=== PATIENT | male | born 1965 | race Caucasian/White ===

== ENCOUNTER 2020-07-15 09:46 | Outpatient (NON) | payer OTHER, SELFPAY ==
[2020-07-16 01:01] LABS: SARS-CoV-2 RNA PCR Negative
== END 2020-07-15 09:47 ==
PROVIDERS: PCP Family Medicine; Visit Provider Family Medicine
DX: R09.81 Nasal congestion (principal)
CPT/HCPCS: 87635; C9803; U0003

== ENCOUNTER → 2021-04-01 04:51 | Outpatient (CLI) | payer OTHER, SELFPAY ==
[2021-04-01 21:10] LABS: SARS-CoV-2 RNA PCR Positive
== END ==
PROVIDERS: PCP Family Medicine; Visit Provider Family Medicine
DX: U07.1 COVID-19 (principal); R09.89 Other specified symptoms and signs involving the circulatory and respiratory systems
CPT/HCPCS: C9803; U0003; U0005

== ENCOUNTER 2022-04-15 12:55 | Emergency (ER) | payer OTHER, SELFPAY ==
[2022-04-15 13:04] VITALS: BP 173/113; PULSE 97; RESP 18; TEMP 36.7; O2SAT 97
--- NOTE | 2022-04-15 13:38 | ED.SKABFB ---
HPI - Skin/Abscess/Foreign Bdy General Chief complaint: Skin/Abscess/Foreign Body Stated complaint: Insect Bite Lt Ankle Time Seen by Provider: 04/15/22 13:39 History of Present Illness HPI narrative: Sergio Collier 57-year-old male with a PMH of high blood pressure, prediabetes, who comes to [facility] with complaints of a wasp sting on his left inner ankle that is painful and mildly swollen and his family wants it looked at. It occurred yesterday Related Data Home Medications Medication Instructions Recorded Confirmed albuterol sulfate 90 mcg/actuation See Rx Instructions .Route 04/15/22 04/15/22 aerosol inhaler .COMPLEX PRN Shortness Of Breath Or Wheezing flash glucose sensor (FreeStyle 04/15/22 04/15/22 Francisca 14 Day Sensor kit) Allergies Allergy/AdvReac Type Severity Reaction Status Date / Time amitriptyline AdvReac Intermediate chest Verified 04/15/22 13:01 discomfort Quinolones AdvReac Intermediate -eye Verified 04/15/22 13:01 drop,red/swollen eye Review of Systems Review of Systems: CONSTITUTIONAL: Denies fever, chills, sweats. EYES: Denies visual changes, redness, discharge. ENT: Denies rhinorrhea, congestion, sore throat, otalgia. CARDIOVASCULAR: Denies chest pain, palpitations, edema. RESPIRATORY: Denies dyspnea, wheezing, cough GASTROINTESTINAL: Denies abdominal pain, nausea, vomiting, diarrhea. GENITOURINARY: Denies dysuria, hematuria, abnormal discharge SKIN: Denies rash or itching. While sting to left inner ankle NEUROLOGIC: Denies numbness, or focal weakness. PSYCHIATRIC: Denies anxiety or depression. [facility] Past Medical History Medical History COVID-19 Diabetes mellitus type 2, uncontrolled History of hypertension History of hypothyroidism Nutcracker esophagus Obesity (BMI 30.0-34.9) Surgical History Surgical History History of appendectomy History of colonoscopy (~10/12/16) History of lumbosacral spine surgery (~1995) History of lumbosacral spine surgery (~1993) History of lumbosacral spine surgery (~1992) Family History Family History Mother Hypertension Social History Social History Smoking status: Current some day smoker Tobacco type: cigarettes Alcohol intake: never Gender identity (if verbalized by the patient): Male Comments At time of signature, I agree with nursing past medical, surgical, social and family history. There is no relevant family history pertinent to the presenting complaint. Exam Narrative: GENERAL: This is a well-nourished, well-developed patient, in mild distress. HEAD: normocephalic, atraumatic. EYES: Sclera clear/white. Vision is grossly intact. EARS: External ears normal, Hearing grossly intact. NOSE: External nose normal without nasal discharge, nares without redness, no rhinorrhea. THROAT: Mucous membranes moist, NECK: Neck supple, non-tender CARDIOVASCULAR: Regular rate and rhythm without murmurs, gallops, or rubs. RESPIRATORY: Clear to auscultation. Breath sounds equal bilaterally. No wheezes, rales, or rhonchi. GASTROINTESTINAL: not done SKIN: warm, intact with indurated lesion, has clear fluid inside vesicle, mild tenderness NEURO: awake, alert, and oriented to person, place and time. There were no obvious focal neurologic abnormalities. Steady gait EXTREMITIES: Normal range of motion. BACK: Nontender without deformity Course Course Emergency Course: Patient has a wasp sting to his left inner ankle- small vesicle: Used 18-gauge needle after cleaning with alcohol to unroofed vesicle which had clear fluid only covered with dressing and told to use hydrocortisone cream and keep a Band-Aid on until healed Level of Care: Express Care Visit Vital Signs Vital signs: Vital Signs Temp
[2022-04-15 13:40] VITALS: BP 159/95
== END 2022-04-15 13:47 | disposition home or self-care (01) ==
PROVIDERS: Emergency Provider Nurse Practitioner; PCP Family Medicine
DX: S90.862A Insect bite (nonvenomous), left foot, initial encounter (principal); W57.XXXA Bitten or stung by nonvenomous insect and other nonvenomous arthropods, initial encounter; F17.210 Nicotine dependence, cigarettes, uncomplicated; E11.9 Type 2 diabetes mellitus without complications; I10 Essential (primary) hypertension; E03.9 Hypothyroidism, unspecified; E66.9 Obesity, unspecified; Z68.44 Body mass index [BMI] 60.0-69.9, adult; Z86.16 Personal history of COVID-19
CPT/HCPCS: 99211; G0463

== ENCOUNTER 2024-10-03 12:08 | Emergency (ER) | payer OTHER, SELFPAY ==
--- OUTSIDE RECORDS SUMMARY | 2024-10-03 12:11 | XMS_ITS | Clinical Summary ---
Author Organization [facility] Address [address] [place] [address] Care Team Providers Care Integrated Program Teacher Name Role Phone Shaheen Diallo MD Primary Care Provider [phone] Allergies No known active allergies Medications lisinopriL (PRINIVIL,ZESTR IL) 10 mg tablet Take 10 mg by mouth nightly 06/05/2020 Active clonazePAM (KlonoPIN) 1 mg tablet Take 1 mg by mouth 2 (two) times a day 04/11/2020 Active Bystolic 10 mg tablet Take 10 mg by mouth daily 06/05/2020 Active albuterol HFA (PROVENTIL HFA,VENTOLIN HFA,PROAIR HFA) 90 mcg/actuation inhaler Inhale 2 puffs every 6 (six) hours as needed for wheezing Active Active Problems Problem Noted Date Diagnosed Date Nicotine abuse 01/20/2023 Assessment & Plan (01/20/2023 1:59 PM CDT): Mr. Collier smokes 3/4 of a pack per day. Given his difficulty with fusion in the past, he will need to cease smoking prior to undergoing any lumbar fusion surgeries. We will discuss this further if surgery is recommended. Spinal stenosis, lumbar region with neurogenic c laudication 09/24/2020 Overview (09/24/2020): Added automatically from request for surgery [id number] Assessment & Plan (11/21/2020 9:37 AM CDT): Assessment Healing fusion L4-5 of migration of cage Plan I talked about activity modification ordered an LSO brace. He is to return in a month for an x-ray S/P spinal fusion 09/24/2020 Overview (09/24/2020): Added automatically from request for surgery [id number] Assessment & Plan (01/20/2023 1:56 PM CDT): Mr. Collier has increasing back pain and symptoms of neurogenic claudication. He is status post multiple prior lumbar surgeries with L4-S1 decompression and fusion as his last surgery in July [address] Dove. He is symptoms of neurogenic claudication that are likely due to stenosis at the adjacent level of L3-4. We will get a CT myelogram to look at adjacent level stenosis as well as to evaluate the exact placement of instrumentation and extent of fusion. We will speak to him by phone after the results are available and discuss further options. Assessment & Plan (07/29/2022 3:04 PM SAILOR): Mr. Collier is clinically doing well after L4-S1 decompression and fusion. He has some back pain and left anterior thigh pain which are intermittent and tolerable. He has some minimal movement at L3-4 on dynamic range of motion. He wishes to follow this conservatively which I think is a very reasonable approach. I plan to see him back in 6 months with no new films at that time. Assessment & Plan (02/04/2022 3:16 PM CDT): Mr. Collier is overall doing well after posterior lumbar decompression and fusion with anterior lumbar interbody fusion at. He reports some left anterior thigh pain which is deep in nature and intermittent. It does not bother him enough to undergo any workup. His x-rays show a lot of bone material in the posterolateral recesses bilaterally and no movement on dynamic range of motion. I plan to see him back in 6 months with AP and lateral lumbar spine films at that time. Resolved Problems Problem Noted Date Diagnosed Date Resolved Date Lumbar pseudoarthrosis 07/21/202101/20 Assessment & Plan (10/30/2021 11:47 AM CDT): Assessment Healing fusion L4-S1 Plan Observation I talked about do's and don'ts he is to return in [address] Jara Pseudarthrosis after fusion or arthrodesis 06/23/2021 01/20/2023 Overview (06/23/2021): Added automatically from request for surgery [id number] Assessment & Plan (09/24/2021 11:09 AM SAILOR): Assessment Healing fusion L4-S1 Plan Observation. I talked about do's and don'ts plan on seeing him back in 6 weeks for an x-ray Assessment & Plan (08/21/2021 11:37 AM SAILOR): Assessment Healing fusion L4-S1 Plan Observation. I talked about do's and don'ts and he is to return in a month for an x-ray Spinal instabilities, lumbar region 10/09/2020 01/20/2023 Overview (10/09/2020): Added automatically from request for surgery [id number] Assessment & Plan (05/22/2021 11:56 AM CDT): Assessment Pseudoarthrosis L4-5 with migrated anterior interbody fusion Plan It has now been 6 months since surgery and has no significant improvement and I will the re-attempt a special drill bits treat move his hardware and revise his fusion posteriorly he understands and accepts Spondylolisthesis, lumbar region 09/24/2020 01/20/2023 Overview (09/24/2020): Added automatically from request for surgery [id number] Spondylolisthesis of lumbar region 07/04/2020 01/20/2023 Assessment & Plan (01/28/2021 11:59 AM CDT): Assessment Healed fusion L5-S1 with anterior interbody fusion healing at L4-5 with protrusion of the interbody cage Plan Observation. He is to return in 2 months for an x-ray Assessment & Plan (12/24/2020 11:58 AM CDT): Assessment Spondylolisthesis L4-5 with no change in the extrusion of the interbody cage Plan Observation. He is to return in a month for repeat x-ray and continue to wear his brace Assessment & Plan (09/19/2020 9:35 AM SAILOR): Assessment Healed L5-S1 fusion from 1995 and grade 1 spondylolisthesis and severe foraminal stenosis at L4-5 refractory to conservative treatment Plan Hardware removal bilateral facetectomy and foraminotomy which were render the spine unstable and instrumented spine fusion from L4-S1 I went over the procedure in detail and he understands Assessment & Plan (08/14/2020 11:28 AM SAILOR): Assessment Healed fusion L5-S1 with moderately severe spinal canal stenosis and bilateral foraminal stenosis L4-5 Plan Right L4-5 transforaminal epidural steroid injection at follow-up visit 2 weeks later Assessment & Plan (07/04/2020 10:49 AM SAILOR): Assessment Healed fusion L5-S1 with grade 1 spondylolisthesis L4-[address] scan lumbar spine to assess L4-5 which likely has pretty severe spinal canal stenosis based on his symptoms Immunizations Immunization Administration Dates Next Due Influenza, Quadrivalent, Spl it, Preservative Free, Intramuscular 10/08/2020 Surgical History Surgery Date Site/Laterality Comments BACK SURGERY APPENDECTOMY SPINAL FUSION 10/21/2020 L4-5 ALIF SPINAL FUSION 07/21/2021 L4-S1 PLF Medical History Medical History Date Comments Hypertension Kidney stone Asthma Spinal stenosis, lumbar region with neurogenic c laudication Obesity Tobacco abuse Diabetes (HCC) Pseudarthrosis after fusion or arthrodesis Family History Medical History Relation Name Comments Hypertension Father Hypertension Mother Relation Name Status Comments Father Mother Social History Tobacco Use Types Packs/Day Years Used Date Smoking Tobacco: Every Day Cigarettes Smokeless Tobacco: Never Tobacco Cessation:Ready to Q uit: Not Asked Alcohol Use Standard Drinks/Week Comments Never 0 (1 standard drink = 0.6 oz pur e alcohol) AUDIT-C Answer Date Recorded Q1: How often do you have a drink containing alc ohol? Never 07/21/2021 Average Number of Drinks Not on file 021 Q3: How often do you have si x or more drinks on one occasion? Never 07/21/2021 PHQ-2 Answer Date Recorded PHQ-2 Total Score 0 07/04/2020 Sex and Gender Information Value Date Recorded Sex Assigned at Not on file Legal Sex Male 9:47 AM SAILOR Gender Identity Not on file Sexual Orientation Not on file Obstetrics History Last Filed Vital Signs Vital Sign Reading Time Taken Comments Blood Pressure 152/77 07/22/2021 9:37 AM SAILOR Pulse 92 07/22/2021 9:37 AM SAILOR Temperature 36.7 C (98.1 F) 07/22/2021 9:37 AM SAILOR Respiratory Rate 14 01/20/2023 1:16 PM CDT Oxygen Saturation 98% 07/22/2021 9:37 AM SAILOR Inhaled Oxygen Concentration - - Weight 94.3 kg (208 lb) 01/20/2023 1:16 PM CDT Height 175.3 cm (5' 9 ) 01/20/2023 1:16 PM CDT Body Mass Index 30.72 01/20/2023 1:16 PM CDT Plan of Treatment Health Maintenance Due Date Last Done Comments Colon Cancer Screening-Colonoscopy 1965 Hepatitis C Screening 1965 Prostate Cancer Screening-PSA 1965 Pneumococcal vaccine <65 (1 of 2 - PCV) 01/12/1970 Hepatitis B Screening 01/12/1982 Regular Well Visit/Exam 18-64 01/12/1982 Zoster Vaccine (1 of 2) 01/12/2014 Depression Screening 07/04/2021 07/04/2020 Influenza Vaccine (#1) 2024 10/08/2020, 2017 DTaP/Tdap/Td Vaccine (2 - Td or Tdap) 01/29/2030 Medical Devices Implanted Type Area Structural Biologist Device Identifier Shelf Expiration Date Model / Serial / Lot Allosource [id number] Cubes Graft 15ml Bone Cancellous - [id number] - [id number] Implanted:Qty: 1 on 07/21/2021 by Cuauhtemoc Dove MD at [facility] Bone N/A: Lumbar-S acral Spine Allosource 10/05/2023 [id number] / [id number] / N/A Medtronic Sofamor Danek [id number] Infuse 20ga 2x1in Vial Absorbable Syringe Needle Medium Graft 5.6 - Sn/A - [id number] Implanted:Qty: 1 on 07/21/2021 by Cuauhtemoc Dove MD at [facility] Other - see comments N/A: Lumbar-S acral Spine Medtronic Inc 04/16/2023 [id number] / N/A / [id number] [employer] 703-038-Us Putty Bone 1-2mm Granules 10cc Magnetos - Sn/A - [id number] Implanted:Qty: 1 on 07/21/2021 by Cuauhtemoc Dove MD at [facility] Other - see comments N/A: Lumbar-S acral Spine Panono [id number] 02/14/2024 703-038-US / N/A / [id number] Qsrs Pre-Bent 5.5mm X 65mm - [id number] Implanted:Qty: 2 on 07/21/2021 by Cuauhtemoc Dove MD at [facility] Other - see comments N/A: Lumbar-S acral Spine [employer] 10-55-NV-6 5 / / [employer] 25-Lp-36 36mm Spine Lumbar Anterior Plate Bone Nonsterile - [id number] Implanted:Qty: 1 on 10/21/2020 by Cuauhtemoc Dove MD at [facility] Plate Spine Lumbar [employer] 25-LP-36 / / Screw 7.0mm X 40mm Streamline Tl Pedicle - Sn/A - [id number] Implanted:Qty: 2 on 07/21/2021 by Cuauhtemoc Dove MD at [facility] Screw N/A: Lumbar-S acral Spine [employer] 01-PA-70-4 0 / N/A / Description:l4 bilat Screw 8.5mm X 40mm Srmlne Pedicle - [id number] Implanted:Qty: 2 on 07/21/2021 by Cuauhtemoc Dove MD at [facility] Screw N/A: Lumbar-S acral Spine [employer] PA-85-4 0 / / Description:s1 Screw 7.5mm X 45mm Srmlne Pedicle - Sn/A - [id number] Implanted:Qty: 2 on 07/21/2021 by Cuauhtemoc Dove MD at [facility] Screw N/A: Lumbar-S acral Spine [employer] PA-75-4 5 / N/A / Screw Set Streamline Tl Screw System - Sn/A - [id number] Implanted:Qty: 6 on 07/21/2021 by Cuauhtemoc Dove MD at [facility] Screw N/A: Lumbar-S acral Spine [employer] SETSCRE W / N/A / Medtronic Sofamor Danek [id number] Infuse 20ga 2x1in Vial Absorbable Syringe Needle Medium Graft 5.6 - [id number] Implanted:Qty: 1 on 10/21/2020 by Cuauhtemoc Dove MD at [facility] Spine Lumbar Medtronic Inc 04/15/2021 [id number] / / [id number] Rti [employer] 34-S65-99-3 Contact Option Vbr 02l29mb Lordosis Back Cutting Teeth - [id number] Implanted:Qty: 1 on 10/21/2020 by Cuauhtemoc Dove MD at [facility] Spine Lumbar [employer] [id number] 12/28/2023 34-A30-12- 8 / / [id number] Rti [employer] Inc 6mm 24mm Spine Lumbar Screw Bone Nonsterile - [id number] Implanted:Qty: 4 on 10/21/2020 by Cuauhtemoc Dove MD at [facility] Spine Lumbar [employer] -24 / / Insurance [facility] CHO[facility] PLUS [facility] PLUS Advance Directives For more information, please contact: [phone] * Full Code (Latest Code Status on File) Date Activated Date Inactivated Comments 07/21/2021 1:53 PM 07/22/2021 3:44 PM * Full Code Date Activated Date Inactivated Comments 10/21/2020 6:29 PM 10/22/2020 6:30 PM * Full Code Date Activated Date Inactivated Comments 10/07/2020 4:52 PM 10/08/2020 3:52 PM Care Teams Integrated Program Teacher Relationship Specialty Start Date End Date Shaheen Diallo MD PCP - General Family Medicine 07/04/20
--- OUTSIDE RECORDS SUMMARY | 2024-10-03 12:11 | XMS_ITS | Referral Summary ---
[facility] Address [address] [place] [address] Care Team Providers Care Data Technician Name Role Phone Shaheen Diallo MD Primary Care Provider [phone] Allergies No known active allergies Medications lisinopriL [...] (09/24/2020): Added automatically from request for surgery [id number] Assessment & Plan (11/21/2020 9:37 AM CDT): Assessment Healing fusion L4-5 of migration of cage Plan I talked about activity modification ordered an LSO brace. He is to return in a month for an x-ray S/P spinal fusion 09/24/2020 Overview (09/24/2020): Added automatically from request for surgery [id number] Assessment & Plan (01/20/2023 1:56 PM CDT): [...] options. Assessment & Plan (07/29/2022 3:04 PM INSULATION INSPECTOR): Mr. Collier is clinically doing well after [...] (06/23/2021): Added automatically from request for surgery [id number] Assessment & Plan (09/24/2021 11:09 AM INSULATION INSPECTOR): Assessment Healing fusion L4-S1 Plan Observation. I talked about do's and don'ts plan on seeing him back in 6 weeks for an x-ray Assessment & Plan (08/21/2021 11:37 AM INSULATION INSPECTOR): Assessment Healing fusion L4-S1 Plan Observation. I talked about do's and don'ts and he is to return in a month for an x-ray Spinal instabilities, lumbar region 10/09/2020 01/20/2023 Overview (10/09/2020): Added automatically from request for surgery [id number] Assessment & Plan (05/22/2021 11:56 AM CDT): [...] (09/24/2020): Added automatically from request for surgery [id number] Spondylolisthesis of lumbar region 07/04/2020 01/20/2023 Assessment [...] brace Assessment & Plan (09/19/2020 9:35 AM INSULATION INSPECTOR): Assessment Healed L5-S1 fusion from 1995 and grade 1 spondylolisthesis and severe foraminal stenosis at L4-5 refractory to conservative treatment Plan Hardware removal bilateral facetectomy and foraminotomy which were render the spine unstable and instrumented spine fusion from L4-S1 I went over the procedure in detail and he understands Assessment & Plan (08/14/2020 11:28 AM INSULATION INSPECTOR): Assessment Healed fusion L5-S1 with moderately severe spinal canal stenosis and bilateral foraminal stenosis L4-5 Plan Right L4-5 transforaminal epidural steroid injection at follow-up visit 2 weeks later Assessment & Plan (07/04/2020 10:49 AM INSULATION INSPECTOR): Assessment Healed fusion L5-S1 with grade 1 spondylolisthesis L4-[address] scan lumbar spine to assess L4-5 which likely has pretty severe spinal canal stenosis based on his symptoms Immunizations Immunization Administration Dates Next Due Influenza, Quadrivalent, Spl it, Preservative Free, Intramuscular 10/08/2020 Social History Tobacco Use Types Packs/Day Years [...] on file Legal Sex Male 9:47 AM INSULATION INSPECTOR Gender Identity Not on file Sexual Orientation Not on file Last Filed Vital Signs Vital Sign Reading Time Taken Comments Blood Pressure 152/77 07/22/2021 9:37 AM INSULATION INSPECTOR Pulse 92 07/22/2021 9:37 AM INSULATION INSPECTOR Temperature 36.7 C (98.1 F) 07/22/2021 9:37 AM INSULATION INSPECTOR Respiratory Rate 14 01/20/2023 1:16 PM CDT Oxygen Saturation 98% 07/22/2021 9:37 AM INSULATION INSPECTOR Inhaled Oxygen Concentration - - Weight 94.3 kg (208 lb) 01/20/2023 1:16 PM CDT Height 175.3 cm (5' 9 ) 01/20/2023 1:16 PM CDT Body Mass Index 30.72 01/20/2023 1:16 PM CDT Plan of Treatment Not on file Medical Devices Implanted Type Area Butt Maker Device Identifier Shelf Expiration Date Model / Serial / Lot Allosource [id number] Cubes Graft 15ml Bone Cancellous - [id number] - [id number] Implanted:Qty: 1 on 07/21/2021 by Cuauhtemoc Dove MD at [facility] Bone N/A: Lumbar-S acral Spine Allosource 10/05/2023 [id number] / [id number] / N/A Medtronic Sofamor Danek [id number] Infuse 20ga 2x1in Vial Absorbable Syringe Needle Medium Graft 5.6 - Sn/A - [id number] Implanted:Qty: 1 on 07/21/2021 by Cuauhtemoc Dove MD at [facility] Other - see comments N/A: Lumbar-S acral Spine Medtronic Inc 04/16/2023 [id number] / N/A / [id number] [employer] 703-038-Us Putty Bone 1-2mm Granules 10cc Magnetos - Sn/A - [id number] Implanted:Qty: 1 on 07/21/2021 by Cuauhtemoc Dove MD at [facility] Other - see comments N/A: Lumbar-S acral Spine [employer] [id number] 02/14/2024 703-038-US / N/A / Y2017 Qsrs Pre-Bent 5.5mm X 65mm - [id number] Implanted:Qty: 2 on 07/21/2021 by Cuauhtemoc Dove MD at [facility] Other - see comments N/A: Lumbar-S acral Spine [employer] 10-55-MN-6 5 / / [employer] 25-Lp-36 36mm Spine Lumbar Anterior Plate Bone Nonsterile - [id number] Implanted:Qty: 1 on 10/21/2020 by Cuauhtemoc Dove MD at [facility] Plate Spine Lumbar [employer] 25-LP-36 / / Screw 7.0mm X 40mm Streamline Tl Pedicle - Sn/A - [id number] Implanted:Qty: 2 on 07/21/2021 by Cuauhtemoc Dove MD at [facility] Screw N/A: Lumbar-S acral Spine [employer] PA-70-4 0 / N/A / Description:l4 bilat Screw 8.5mm X 40mm Srmlne Pedicle - [id number] Implanted:Qty: 2 on 07/21/2021 by Cuauhtemoc Dove MD at [facility] Screw N/A: Lumbar-S acral Spine [employer] -85-4 0 / / Description:s1 Screw 7.5mm X 45mm Srmlne Pedicle - Sn/A - [id number] Implanted:Qty: 2 on 07/21/2021 by Cuauhtemoc Dove MD at [facility] Screw N/A: Lumbar-S acral Spine [employer] -75-4 5 / N/A / Screw Set Streamline Tl Screw System - Sn/A - [id number] Implanted:Qty: 6 on 07/21/2021 by Cuauhtemoc Dove MD at [facility] Screw N/A: Lumbar-S acral Spine [employer] SETSCRE W / N/A / Medtronic Sofamor Danek [id number] Infuse 20ga 2x1in Vial Absorbable Syringe Needle Medium Graft 5.6 - [id number] Implanted:Qty: 1 on 10/21/2020 by Cuauhtemoc Dove MD at [facility] Spine Lumbar Medtronic Inc 04/15/2021 [id number] / / [id number] Rti [employer] Inc 34-P15-25-1 Contact Option [id number] Lordosis Back Cutting Teeth - [id number] Implanted:Qty: 1 on 10/21/2020 by Cuauhtemoc Dove MD at [facility] Spine Lumbar [employer] [id number] 12/28/2023 34-A30-12- 8 / / [id number] Rti Surgical Inc -60-24 6mm 24mm Spine Lumbar Screw Bone Nonsterile - [id number] Implanted:Qty: 4 on 10/21/2020 by Cuauhtemoc Dove MD at [facility] Spine Lumbar [employer] 25-60-24 / / Insurance [facility] CHOICE PLUS [facility] CHOICE PLUS [facility] CHOICE PLUS Advance Directives For more information, please contact: [phone] * Full Code (Latest Code Status on File) Date Activated Date Inactivated Comments 07/21/2021 1:53 PM 07/22/2021 3:44 PM * Full Code Date Activated Date Inactivated Comments 10/21/2020 6:29 PM 10/22/2020 6:30 PM * Full Code Date Activated Date Inactivated Comments 10/07/2020 4:52 PM 10/08/2020 3:52 PM Care Teams Data Technician Relationship Specialty Start Date End Date Shaheen Diallo MD PCP - General Family Medicine 07/04/20
--- OUTSIDE RECORDS SUMMARY | 2024-10-03 12:11 | XMS_ITS | Clinical Summary ---
Author Organization [facility] Address [facility] [place] [address] Care Team Providers Care Codifier Name Role Phone Shaheen Diallo MD Primary Care Provider +1- [phone] Allergies No known active allergies Medications nebivolol 10 MG tablet Take 10 mg by mouth daily. Active lisinopril-hydro CHLOROthiazide 10-12.5 MG tablet Take 1 tablet by mouth daily. Active clonazePAM 1 MG tablet Take 1 mg by mouth daily. Active Active Problems No known active problems Immunizations Name Administration Dates Next Due Tdap (Adacel) 01/30/2020 Social History Tobacco Use Types Packs/Day Years Used Date Smoking Tobacco: Never Smokeless Tobacco: Never Alcohol Use Standard Drinks/Week Comments Never 0 (1 standard drink = 0.6 oz pur e alcohol) AUDIT-C Answer Date Recorded Frequency of Alcohol Consumption Never 01/30/2020 Average Number of Drinks Not on file 020 Frequency of Binge Drinking Not on file 01/14 Sex and Gender Information Value Date Recorded Sex Assigned at Not on file Legal Sex Male 9:05 PM CDT Gender Identity Not on file Sexual Orientation Not on file Last Filed Vital Signs Vital Sign Reading Time Taken Comments Blood Pressure 129/73 01/30/2020 10:00 PM CDT Pulse 85 01/30/2020 9:56 PM CDT Temperature 36.2 C (97.2 F) 01/30/2020 9:08 PM CDT Respiratory Rate 16 01/30/2020 9:56 PM CDT Oxygen Saturation 97% 01/30/2020 9:56 PM CDT Inhaled Oxygen Concentration - - Weight 90.7 kg (200 lb) 01/30/2020 9:08 PM CDT Height 177.8 cm (5' 10 ) 01/30/2020 9:08 PM CDT Body Mass Index 28.7 01/30/2020 9:08 PM CDT Plan of Treatment Health Maintenance Due Date Last Done Comments Colorectal Cancer Screening Colonoscopy (10 Years) 1964 Annual Physical 01/12/1967 Hepatitis C 01/12/1982 Zoster Vaccines (1 of 2) 01/12/2014 COVID-19 Vaccine ( - 2023-2 5 season) 2024 Influenza Adult (#1) 2024 DTaP, Tdap and Td Vaccines ( 2 - Td or Tdap) 01/29/2030 01/30/2020 RSV Immunization or 60+ Years (1 - 1-dose 75+ series) 01/12/2039 Meningococcal B Vaccine Aged Out No l onger eligible based on patient's age to complete this topic Meningococcal Vaccine Aged Out No avila ailyn eligible based on patient's age to complete this topic Pneumococcal Vaccine: Pediat rics (0 to 5 Years) and At-Risk Patients (6 to 64 Years) Aged Out No longer eligi ble based on patient's age to complete this topic RSV Immunizations Under 20 Months Aged Out No longer eligible based on patient's age to complete this topic Insurance [facility] Care Teams Codifier Relationship Specialty Start Date End Date Shaheen Diallo MD PCP - General FAMILY PRACTICE 01/30/20
[2024-10-03 12:26] VITALS: BP 141/84; PULSE 100; RESP 18; TEMP 36.8; O2SAT 98
[2024-10-03 12:42] LABS: EDINFLUASCREEN Negative (Negative); EDINFLUBSCREEN Negative (Negative)
[2024-10-03 12:42] LABS: EDCOVIDSCREEN Negative (Negative)
--- NOTE | 2024-10-03 12:42 | ED.GENADULT ---
HPI - General Adult General Chief complaint: Upper Respiratory Infection Stated complaint: bilateral Ear Pain / cold in chest History of Present Illness HPI narrative: Sergio Collier Is a 59-year-old male who presents today with complaints of 3 days productive cough, ear pain, body aches not feeling well states that he quit smoking recently he has history of hypertension. Related Data Allergies Allergy/AdvReac Type Severity Reaction Status Date / Time amitriptyline AdvReac Intermediate chest Verified 10/03/24 12:36 discomfort Quinolones AdvReac Intermediate -eye Verified 10/03/24 12:36 drop,red/swollen eye Review of Systems Review of Systems: All systems reviewed & are unremarkable except as noted in HPI and below PMFSH Past Medical History Medical History COVID-19 Diabetes mellitus type 2, uncontrolled Nutcracker esophagus Obesity (BMI 30.0-34.9) History of hypothyroidism History of hypertension Surgical History Surgical History Hx of LASIK History of lumbosacral spine surgery (~1992) History of lumbosacral spine surgery (~1993) History of lumbosacral spine surgery (~1995) History of colonoscopy (~10/12/16) History of appendectomy Family History Family History Mother Hypertension Social History Social History Years smoked: 30 Smoking status: Former smoker Tobacco type: cigarettes Alcohol intake: never Substance use type: does not use Gender identity (if verbalized by the patient): Male Exam Narrative: GENERAL: Well-appearing, well-nourished, and in no acute distress. HEAD: Normocephalic, atraumatic. EYES: PERRLA and EOMI. ENT: Nares clear, no rhinorrhea or epistaxis. Mucous membranes moist. Oropharynx without tonsillar hypertrophy exudate or other lesions. Bilateral TMs pearly juan nonbulging NECK: Supple. No adenopathy or masses. No carotid bruits or JVD CHEST: Clear to auscultation while mild expiratory wheeze in the left posterior base. No respiratory distress. HEART: Regular rate and rhythm. No murmur heard. Normal peripheral pulses. ABDOMEN: Soft, nontender, nondistended, normal active bowel sounds. EXTREMITIES: Normal range of motion. No edema. SKIN: Warm, dry, no rash. NEURO: No focal deficits. Alert and oriented x3. PSYCH: Normal mood and affect. Course Course Level of Care: Express Care Visit Vital Signs Vital signs: Vital Signs Temperature 36.8 C 10/03/24 12: Pulse Rate 100 10/03/24 12: Respiratory Rate 10/03/24 12: Blood Pressure 141/84 H 10/03/24 12: Pulse Oximetry 98 10/03/24 12:26 Oxygen Delivery Room Air 10/03/24 12: Temperature 36.8 C 10/03/24 12: Pulse Rate 100 10/03/24 12: Respiratory Rate 10/03/24 12: Blood Pressure 141/84 H 10/03/24 12: Pulse Oximetry 98 10/03/24 12: Oxygen Delivery Room Air 10/03/24 12:26 Medical Decision Making MDM Narrative Medical decision making narrative: ED COURSE AND MEDICAL DECISION MAKING: This 59 year old patient presents with symptoms most suggestive of respiratory tract infection. Lungs are clear with mild expiratroy wheeze in the left lower bases. He states he has been on albuterol before. Prevsoius smoker, concern for acute bronchitis - will start pt on Azithromycin and refill his albuterol inhaler Encouraged rest/ hydration Viral swabs - Negative . Patient is discharged home in stable condition with expectant management. Return precautions were provided. Procedures: Pulse oximetry interpretation - not hypoxic. Review of medical records. DISPOSITION: Discharged home in stable condition. IMPRESSION: Acute bronchitis Medical Records Medical records reviewed: Yes I reviewed the external patient's medical records. Vital Signs Vital Signs: Vital Signs Temperature 36.8 C 10/03/24 12: Pulse Rate 100 10/03/24 12:26 Respiratory Rate 18 10/03/24 12: Blood Pressure 141/84 H 10/03/24 12: Pulse Oximetry 98 10/03/24 12: Oxygen Delivery Room Air 10/03/24 12: Temperature 36.8 C 10/03/24 12: Pulse Rate 100 10/03/24 12: Respiratory Rate 18 10/03/24 12:26 Blood Pressure 141/84 H 10/03/24 12:26 Pulse Oximetry 98 10/03/24 12:26 Oxygen Delivery Room Air 10/03/24 12:26 vitals reviewed by me Lab Data Labs: Lab Results 10/03/24 10/03/24 Range/Units 12:40 12:41 POC Influenza A Ag Negative (Negative) POC Influenza B Ag Negative (Negative) POC SARS CoV-2 Ag Negative (Negative) Discharge Plan Discharge Clinical Impression: Bronchitis Patient Disposition: Home, Self-Care Condition: Stable Instructions: Antibiotic Form, Acute Bronchitis (ED) Additional Instructions: start taking the azithromycin as ordered. Start using the albuterol inhaler as ordered. Follow-up with your PCP in 3-5 days to ensure you are improving expected to start to feel better within the next 48 hours if he develops any worsened symptoms that we discussed such as high fever, chest pain, difficulty breathing, shortness of breath, proceed to the ER Patient Language: Greenlandic Prescriptions: New azithromycin 250 mg tablet See Rx Instructions .ROUTE .COMPLEX Qty: 6 0RF Rx Instructions: For 250 mg dose pack: take 500 mg today (day 1), then 250 mg for 4 days (days 2-5) albuterol sulfate [Ventolin HFA] 90 mcg/actuation HFA aerosol inhaler 1 inh inhalation QID PRN (Reason: shortness of breath or wheezing) Qty: 8.5 0RF No Action (DME) FreeStyle Francisca 14 Day [place] Misc See Rx Instructions .ROUTE .MEDSUPPLY Qty: 1 0RF Rx Instructions: As directed nebivolol 10 mg tablet See Rx Instructions .ROUTE .COMPLEX Qty: 90 3RF Dose Instruction: TAKE 1 TABLET BY MOUTH DAILY Rx Instructions: TAKE 1 TABLET BY MOUTH DAILY lisinopril 10 mg tablet See Rx Instructions .ROUTE .COMPLEX Qty: 90 3RF Dose Instruction: TAKE 1 TABLET BY MOUTH DAILY Rx Instructions: TAKE 1 TABLET BY MOUTH DAILY clonazepam 1 mg tablet 1 mg PO BID Qty: 180 1RF albuterol-budesonide 90-80 mcg/actuation HFA aerosol inhaler 2 inh inhalation QID PRN (Reason: shortness of breath) Qty: 5.9 0RF Rx Instructions: as a single dose; may repeat up to 6 doses per day (12 inhalations) (DME) FreeStyle Francisca 14 Day Sensor Kit See Rx Instructions .ROUTE .COMPLEX Qty: 13 3RF Dose Instruction: USE DIRECTED Rx Instructions: USE DIRECTED albuterol sulfate 90 mcg/actuation HFA aerosol inhaler See Rx Instructions .ROUTE .COMPLEX Qty: 8.5 5RF Dose Instruction: INHALE 2 PUFFS BY MOUTH EVERY 4 HOURS Rx Instructions: INHALE 2 PUFFS BY MOUTH EVERY 4 HOURS Follow-up/Referrals: Shaheen Diallo MD [Primary Care Provider] - Time of Disposition: 12:49
== END 2024-10-03 13:09 | disposition home or self-care (01) ==
PROVIDERS: Emergency Provider Nurse Practitioner Family; PCP Family Medicine
DX: J40 Bronchitis, not specified as acute or chronic (principal); Z20.822 Contact with and (suspected) exposure to COVID-19; Z87.891 Personal history of nicotine dependence; E11.9 Type 2 diabetes mellitus without complications; I10 Essential (primary) hypertension; E03.9 Hypothyroidism, unspecified; E66.9 Obesity, unspecified; Z68.31 Body mass index [BMI] 31.0-31.9, adult; Z86.16 Personal history of COVID-19
CPT/HCPCS: 87426; 87804; 99213; G0463

== ENCOUNTER 2025-04-24 09:54 | Outpatient (CLI) | payer OTHER, SELFPAY ==
--- OUTSIDE RECORDS SUMMARY | 2025-04-24 11:12 | XMS_ITS | Clinical Summary ---
Author Organization [facility] Address [address] [place] [address] Care Team Providers Care Assistant Maintenance Manager Name Role Phone Shaheen Diallo MD Primary Care Provider [phone] [phone] Allergies No known active allergies Medications lisinopriL [...] (09/24/2020): Added automatically from request for surgery [id number] Assessment & Plan (11/21/2020 9:37 AM CDT): Assessment Healing fusion L4-5 of migration of cage Plan I talked about activity modification ordered an LSO brace. He is to return in a month for an x-ray S/P spinal fusion 09/24/2020 Overview (09/24/2020): Added automatically from request for surgery [id number] Assessment & Plan (01/20/2023 1:56 PM CDT): [...] options. Assessment & Plan (07/29/2022 3:04 PM SHOULDER BONER): Mr. Collier is clinically doing well after [...] (06/23/2021): Added automatically from request for surgery [id number] Assessment & Plan (09/24/2021 11:09 AM SHOULDER BONER): Assessment Healing fusion L4-S1 Plan Observation. I talked about do's and don'ts plan on seeing him back in 6 weeks for an x-ray Assessment & Plan (08/21/2021 11:37 AM SHOULDER BONER): Assessment Healing fusion L4-S1 Plan Observation. I talked about do's and don'ts and he is to return in a month for an x-ray Spinal instabilities, lumbar region 10/09/2020 01/20/2023 Overview (10/09/2020): Added automatically from request for surgery [id number] Assessment & Plan (05/22/2021 11:56 AM CDT): [...] (09/24/2020): Added automatically from request for surgery [id number] Spondylolisthesis of lumbar region 07/04/2020 01/20/2023 Assessment [...] brace Assessment & Plan (09/19/2020 9:35 AM SHOULDER BONER): Assessment Healed L5-S1 fusion from 1995 and grade 1 spondylolisthesis and severe foraminal stenosis at L4-5 refractory to conservative treatment Plan Hardware removal bilateral facetectomy and foraminotomy which were render the spine unstable and instrumented spine fusion from L4-S1 I went over the procedure in detail and he understands Assessment & Plan (08/14/2020 11:28 AM SHOULDER BONER): Assessment Healed fusion L5-S1 with moderately severe spinal canal stenosis and bilateral foraminal stenosis L4-5 Plan Right L4-5 transforaminal epidural steroid injection at follow-up visit 2 weeks later Assessment & Plan (07/04/2020 10:49 AM SHOULDER BONER): Assessment Healed fusion L5-S1 with grade 1 [...] on file Legal Sex Male 9:47 AM SHOULDER BONER Gender Identity Not on file Sexual Orientation Not on file Obstetrics History Last Filed Vital Signs Vital Sign Reading Time Taken Comments Blood Pressure 152/77 07/22/2021 9:37 AM SHOULDER BONER Pulse 92 07/22/2021 9:37 AM SHOULDER BONER Temperature 36.7 C (98.1 F) 07/22/2021 9:37 AM SHOULDER BONER Respiratory Rate 14 01/20/2023 1:16 PM CDT Oxygen Saturation 98% 07/22/2021 9:37 AM SHOULDER BONER Inhaled Oxygen Concentration - - Weight 94.3 kg (208 lb) 01/20/2023 1:16 PM CDT Height 175.3 cm (5' 9) 01/20/2023 1:16 PM CDT Body Mass Index 30.72 01/20/2023 1:16 PM CDT Plan of Treatment Health Maintenance Due Date Last Done Comments Colon Cancer Screening-Colonoscopy 1965 Hepatitis C Screening 1965 Prostate Cancer Screening-PSA 1965 Hepatitis B Screening 01/12/1982 Regular Well Visit/Exam 18-64 01/12/1982 Pneumococcal vaccine <65 (1 of 2 - PCV) 01/12/1983 Zoster Vaccine (1 of 2) 01/12/2014 Depression Screening 07/04/2021 07/04/2020 Influenza Vaccine (#1) 2025 10/08/2020, 2017 DTaP/Tdap/Td Vaccine (2 - Td or Tdap) 01/29/2030 Medical Devices Implanted Type Area Tile Classifier Device Identifier Shelf Expiration Date Model / Serial / Lot Allosource [id number] [id number] Graft 15ml Bone Cancellous - [id number] - [id number] Implanted:Qty: 1 on 07/21/2021 by Cuauhtemoc Dove MD at [facility] Bone N/A: Lumbar-S acral Spine Allosource 10/05/2023 [id number] / [id number] / N/A Medtronic Sofamor Danek [id number] Infuse 20ga 2x1in Vial Absorbable Syringe Needle Medium Graft 5.6 - Sn/A - [id number] Implanted:Qty: 1 on 07/21/2021 by Cuauhtemoc Dove MD at [facility] Other - see comments N/A: Lumbar-S acral Spine Medtronic Inc 04/16/2023 [id number] / N/A / [id number] Oohly 703-038-[id number] Putty Bone 1-2mm Granules 10cc Magnetos - Sn/A - [id number] Implanted:Qty: 1 on 07/21/2021 by Cuauhtemoc Dove MD at [facility] Other - see comments N/A: Lumbar-S acral Spine ChartCube [id number] 02/14/2024 703-038-[id number] / N/A / [id number] Qsrs Pre-Bent 5.5mm X 65mm - [id number] Implanted:Qty: 2 on 07/21/2021 by Cuauhtemoc Dove MD at [facility] Other - see comments N/A: Lumbar-S acral Spine [employer] 10-55-PA-6 5 / / [employer] 25-Lp-36 36mm Spine Lumbar Anterior Plate Bone Nonsterile - [id number] Implanted:Qty: 1 on 10/21/2020 by Cuauhtemoc Dove MD at [facility] Plate Spine Lumbar [employer] 25-LP-36 / / Screw 7.0mm X 40mm Streamline Tl Pedicle - Sn/A - [id number] Implanted:Qty: 2 on 07/21/2021 by Cuauhtemoc Dove MD at [facility] Screw N/A: Lumbar-S acral Spine [employer] 01-PA-70-4 0 / N/A / Description:l4 bilat Screw 8.5mm X 40mm Srmlne Pedicle - [id number] Implanted:Qty: 2 on 07/21/2021 by Cuauhtemoc Dove MD at [facility] Screw N/A: Lumbar-S acral Spine [employer] PA-85-4 0 / / Description:s1 Screw 7.5mm X 45mm Srmlne Pedicle - Sn/A - [id number] Implanted:Qty: 2 on 07/21/2021 by Cuauhtemoc Dove MD at [facility] Screw N/A: Lumbar-S acral Spine [employer] PA-75-4 5 / N/A / Screw Set Streamline Tl Screw System - Sn/A - [id number] Implanted:Qty: 6 on 07/21/2021 by Cuauhtemoc Dove MD at [facility] Screw N/A: Lumbar-S acral Spine [employer] SETSCRE W / N/A / Medtronic Sofamor Danek [id number] Infuse 20ga 2x1in Vial Absorbable Syringe Needle Medium Graft 5.6 - [id number] Implanted:Qty: 1 on 10/21/2020 by Cuauhtemoc Dove MD at [facility] Spine Lumbar Medtronic Inc 04/15/2021 [id number] / / [id number] Rti [employer] Inc 34-Q68-80-5 Contact Option Vbr [id number] Lordosis Back Cutting Teeth - [id number] Implanted:Qty: 1 on 10/21/2020 by Cuauhtemoc Dove MD at [facility] Spine Lumbar [employer] [id number] 12/28/2023 34-A30-12- 8 / / [id number] Rti Surgical Inc 6mm 24mm Spine Lumbar Screw Bone Nonsterile - [id number] Implanted:Qty: 4 on 10/21/2020 by Cuauhtemoc Dove MD at [facility] Spine Lumbar [employer] -24 / / Insurance [facility] Advance Directives For more information, please contact: [phone] * Full Code (Latest Code Status on File) Date Activated Date Inactivated Comments 07/21/2021 1:53 PM 07/22/2021 3:44 PM * Full Code Date Activated Date Inactivated Comments 10/21/2020 6:29 PM 10/22/2020 6:30 PM * Full Code Date Activated Date Inactivated Comments 10/07/2020 4:52 PM 10/08/2020 3:52 PM Care Teams Assistant Maintenance Manager Relationship Specialty Start Date End Date Shaheen Diallo MD PCP - General Family Medicine 07/04/20
--- OUTSIDE RECORDS SUMMARY | 2025-04-24 11:12 | XMS_ITS | Clinical Summary ---
Author Organization [facility] Address [facility] [place] [address] Care Team Providers Care Grade Setter Name Role Phone Shaheen Diallo MD Primary Care Provider +1- [phone] Allergies No known active allergies Medications nebivolol 10 MG tablet Take 10 mg by mouth daily. Active lisinopril-hydro CHLOROthiazide 10-12.5 MG tablet Take 1 tablet by mouth daily. Active clonazePAM 1 MG tablet Take 1 mg by mouth daily. Active Active Problems No known active problems Immunizations Immunization Administration Dates Next Due Tdap (Adacel) 01/30/2020 [...] 9:08 PM CDT Height 177.8 cm (5' 10) 01/30/2020 9:08 PM CDT Body Mass Index 28.7 01/30/2020 9:08 PM CDT Plan of Treatment Health Maintenance Due Date Last Done Comments Colorectal Cancer Screening Colonoscopy (10 Years) 1965 Annual Physical 01/12/1967 Hepatitis C 01/12/1982 Pneumococcal Vaccine: 50+ Ye ars (1 of 1 - PCV) 01/12/2014 Zoster Vaccines (1 of 2) 01/12/2014 COVID-19 Vaccine (1 - 2023-2 5 season) 2025 DTaP, Tdap and Td Vaccines ( 2 [...] patient's age to complete this topic Insurance Care Teams Grade Setter Relationship Specialty Start Date End Date Shaheen Diallo MD PCP - General FAMILY PRACTICE 01/30/20
[2025-04-24 13:10] LABS: Hematocrit 46.3 % (42.0-52.0); Hemoglobin 15.3 g/dL (14.0-18.0); Immature Granulocyte Percent A 0.2 % (0-0.5); Lymphocytes Absolute Auto 1.42 K/mm3 (0.9-3.2); Mean Corpuscular HGB Conc 33.0 g/dl (32-36); Mean Corpuscular Hemoglobin 30.1 pg (26-34); Mean Corpuscular Volume 91.1 fl (80-100); Nucleated Red Blood Cells Absolute Auto 0.000 K/mm3 (0.0-0.012); Nucleated Red Blood Cells Perc 0.0 % (0.0-0.2); Platelet Count Result 221 k/mm3 (150-375); Red Blood Count 5.08 M/mm3 (4.6-6.20); White Blood Count 5.0 K/mm3 (4.5-10.0)
[2025-04-24 13:23] LABS: Alanine Aminotransferase 26 U/L (6-50); Albumin Level 4.7 g/dL (3.5-5.1); Alkaline Phosphatase 93 U/L (38-126); Anion Gap 8 mmol/L (4-12); Aspartate Amino Transferase 49 U/L (17-59); Bilirubin,Total 0.6 mg/dL (0.2-1.3); Blood Urea Nitrogen 13 mg/dL (9-20); Calcium 9.1 mg/dL (8.4-10.2); Carbon Dioxide 25 mmol/L (22-30); Chloride 103 mmol/L (98-107); Estimated Glomerular Filt Rate > 60; Glucose 209 mg/dL (65-110); Potassium 4.6 mmol/L (3.4-5.0); Sodium 136 mmol/L (137-145); Total Protein 7.9 g/dL (6.3-8.2)
[2025-04-24 14:04] LABS: Thyroid Stimulating Hormone 1.720 uIU/mL (0.465-4.680)
[2025-04-24 15:43] LABS: Hemoglobin A1C 7.9 % (<5.7)
== END 2025-04-24 09:55 | disposition home or self-care (01) ==
LOC: ANHGOSHLAB 09:55
PROVIDERS: PCP Family Medicine; Visit Provider Nurse Practitioner Family
DX: E11.65 Type 2 diabetes mellitus with hyperglycemia (principal); E66.9 Obesity, unspecified; I10 Essential (primary) hypertension
CPT/HCPCS: 36415; 80053; 83036; 84443; 85025

== ENCOUNTER 2025-07-10 23:16 | Emergency (ER) | payer OTHER, SELFPAY ==
[2025-07-10 23:16] VITALS: BP 176/104; PULSE 87; RESP 16; TEMP 36.3; O2SAT 96
--- OUTSIDE RECORDS SUMMARY | 2025-07-10 23:21 | XMS_ITS | Patient Health Record ---
Author Organization [facility] Address [address] [place] [address] Care Team Providers Care Wreath Machine Tender Name Role Phone Shazia Díaz Unavailable [phone] Allergies No Known Allergies Reason For Referral No Information Medications Medication SIG (Take, Route, Frequency, Duration) Notes Start Date End Date Status Nebivolol HCl 10 MG Tablet 1 tablet Orally Once a day Active Lisinopril 20 MG Tablet 1 tablet Orally Once a day Active clonazePAM 1 MG Tablet 1 tablet Orally t wice a day Active Farxiga 5 MG Tablet 1 tablet Orally Once a day; Duration: 30 days 05/22/2025 Active Social History Section Notes: tobacco: yes, 1/2 pack a day, 20 years alcohol: no caffeine: yes, several cups per day Problems Problem Type SNOMED Code ICD Code Onset Dates Problem Status W/U Status Risk Notes Problem Essential hypertension (66376256) Essential hypertension (I10) Active confirmed Problem Dyslipidemia (570721547) Dyslipidemia (E78.5) Active confirmed Problem Type II diabetes mellitus without complication (899251141) Type 2 diabetes mellitus without complication, without long-term current use of insulin (E11.9) Active confirmed Vital Signs Heart Rate 87 /min 05/22/2025 Temperature 98 degrees Fahrenheit 05/22/2025 Height-cm 175.26 cm 05/22/2025 Blood pressure diastolic 82 mm Hg 05/22/2025 Weight-kg 92.9 kg 05/22/2025 Height 69 in 05/22/2025 Blood pressure systolic 144 mm Hg 05/22/2025 Weight 204.8 lbs 05/22/2025 BMI 30.24 kg/m2 05/22/2025 Encounters Encounter Location Date Provider Diagnosis [facility] [address] D[address] [address] [place] [address] 05/22/2025 Shazia Díaz Type 2 diabetes danica litus without complication, without long-term current use of insulin E11.9 ; Dyslipidemia E78.5 ; Other fatigue R53.83 and Dietary counseling and surveillance Z71.[address] [address] [place] [address] 05/22/2025 Shazia Díaz Assessments Encounter Date Diagnosis (ICD Code) Assessment Notes Treatment Notes Treatment Clinical Notes Section Notes 05/22/2025 Dyslipidemia (ICD-10 - E78.5) 05/22/2025 Type 2 diabetes mellitus without complication, without long-term current use of insulin (ICD-10 - E11.9) 05/22/2025 Other fatigue (ICD-10 - R53.83) 05/22/2025 Dietary counseling and surveillance (ICD-10 - Z71.3) Spent 15 minutes preventative counseling patient on dietary recommendations and changes in setting of hyperglycemia- need to restrict refined sugars and processed foods and incorporate up to 150 minutes of moderate level activity weekly. 05/22/2025 Chelita Hill is a male patient with a history of borderline type 2 diabetes, back surgeries, and asthma, presenting for diabetes management and concerns about kidney function. Type 2 Diabetes MellitusAssessment: Patient has a history of borderline type 2 diabetes with previous A1c of 13, which improved to 6.1 with lifestyle modifications and 7.9% from Apr. Recent average blood glucose is 126 mg/dL over the past two weeks, as measured by Freestyle Francisca A3 continuous glucose monitor. Patient reports inability to tolerate metformin due to hypoglycemic episodes. Weight loss of 10 pounds noted since last visit. Patient demonstrates good understanding of dietary impact on blood glucose levels and has made significant lifestyle changes, including eliminating sugary beverages and incorporating healthier food choices.Plan:- Initiate Jardiance (preferred by insurance) or Farxiga if covered- Continue use of Freestyle Francisca A3 for glucose monitoring- Encourage maintenance of dietary modifications and physical activity- Advise on proper hydration and regular meal consumption- Recommend glkijyt-og-msjpdbpb rate ratio of 2:1 in meals- Schedule follow-up in 4-8 weeks- Order comprehensive metabolic panel and HbA1c one week before next visit- Patient to call after blood work is completed Chronic Kidney DiseaseAssessment: Patient reports recent kidney function test result of 59 (presumed eGFR), indicating stage 3a chronic kidney disease. This is a new concern for the patient. The proposed diabetes medication (SGLT2 inhibitor) is expected to have renoprotective effects.Plan:- Initiate SGLT2 inhibitor (Jardiance or Farxiga) for renal protection- Monitor kidney function with upcoming lab work- Educate patient on importance of hydration and avoiding nephrotoxic substances Chronic Back PainAssessment: Patient has a history of three back surgeries two years ago, with hardware placement including 6 screws, 2 steel rods, and a cage. Reports ongoing pain in legs and feet related to back issues. Despite this, patient remains active and continues to ride horses.Plan:- Continue current pain management regimen (details not provided in transcript)- Encourage safe physical activity as tolerated HypertensionAssessm ent: Patient is currently on Bystolic for blood pressure management. No specific blood pressure readings or concerns mentioned in the transcript.Plan:- Continue Bystolic AsthmaAssessment: Patient reports carrying an inhaler for asthma but rarely uses it, suggesting well-controlled asthma.Plan:- Continue current asthma management with as-needed inhaler use Spent 45 minutes preparing to see the patient (ex review of tests/chart), obtaining and / or reviewing separately obtained history, performing a medically appropriate examination and/or evaluation, counseling and educating the patient/family/senior care specialist, ordering medications, tests, or procedures, referring and communicating with other health administrator health care facility, documenting clinical information in the electronic or other health record, independently interpreting results and communicating results to the patient/family/senior care specialist and care coordinating patient plan. Patient alert and oriented x 4 and aware of discussion noted above and in agreeance to plan in management of type 2 DM, dyslipidemia, fatigue and dietary discussion/recommen dations. Thank you for this consultation. Plan Of Treatment Next Appt Details Provider Name:Shazia Díaz, 11:20:00 AM, [address] [place] [address], [phone], Insurance Providers Payer Name Payer Address Payer Phone Subscriber Number Group Number Insured Name Patient Relationship to Insured Coverage Start Date Coverage End Date [facility] [address] [place] [address] [phone] [id number] ARNOLD LEMONS Self - patient is the insured Medical (General) History Medical History History ICD Code Essential hypertension I10 diabetes Surgical History Surgery Date(Month/Year) 7 back surgeries
--- OUTSIDE RECORDS SUMMARY | 2025-07-10 23:21 | XMS_ITS | Clinical Summary ---
Author Organization [facility] Address [facility] [place] [address] Care Team Providers Care Aircraft Engine Specialist Name Role Phone Shaheen Diallo MD Primary Care Provider [phone] Allergies No known active allergies Medications nebivolol [...] of 2) 01/12/2014 COVID-19 Vaccine (1 - 2024-2 6 season) 2025 Influenza Adult (#1) 2025 DTaP, Tdap and Td Vaccines ( 2 - Td or Tdap) 01/29/2030 01/30/2020 RSV Immunization or 60+ Years (1 - 1-dose 75+ series) 01/12/2039 Hepatitis A Vaccines Aged Out No long er eligible based on patient's age to complete this topic Meningococcal B Vaccine Aged Out No l onger eligible based on patient's age to complete this topic Meningococcal Vaccine Aged Out No avila ailyn eligible based on patient's age to complete this topic RSV Immunizations Under 20 Months Aged Out No longer eligible based on patient's age to complete this topic Insurance Care Teams Aircraft Engine Specialist Relationship Specialty Start Date End Date Shaheen Diallo MD PCP - General FAMILY PRACTICE 01/30/20
--- NOTE | 2025-07-10 23:25 | ED_ITS ---
HPI - Eye Problem General Chief complaint: Eye Problems Stated complaint: eye irritation Time Seen by Provider: 07/10/25 23:23 Source: patient and family Mode of arrival: ambulatory Limitations: no limitations History of Present Illness HPI Narrative: Patient is a 60-year-old male with a right eye pain and irritation for the past 1 day. He has contacts in for a 2 week window and he is fpc through at this time. No obvious trauma except when he used his fingers to remove the contact it felt worse. No fever chills. No drainage from the right eye. Right eye irritation and inflammation appreciated. Patient has had Lasix eye surgery in the past. chief complaint: eye pain and eye redness Onset (ago): day(s) (One) Onset description: sudden Duration: constant Location: right eye Eye Symptoms: burning, redness, pain and photophobia Place: home Mechanism: none Severity: moderate Severity scale (1-10): 4 If Pain, Quality: sharp and burning Context: contact lens use Associated symptoms: none Treatments Prior to Arrival: none Related Data Allergies Allergy/AdvReac Type Severity Reaction Status Date / Time amitriptyline AdvReac Intermediate chest Verified 07/10/25 23:26 discomfort Quinolones AdvReac Intermediate -eye Verified 07/10/25 23:26 drop,red/swollen eye Review of Systems Review of Systems: All systems reviewed & are unremarkable except as noted in HPI and below Constitutional: Constitutional: Reports no additional constitutional complain ts Eyes: Eyes: Reports no additional eye complaints ENT: Reports system reviewed and no additional complaints, except as documented Cardiovascular: Cardiovascular: Reports no additional cardiovascular complaints Respiratory: Respiratory: Reports no additional respiratory complaints Gastrointestinal: Gastrointestinal: Reports no additional gastrointestinal complaints Genitourinary: Genitourinary: Reports no additional male genitourinary complaints Musculoskeletal: Musculoskeletal: Reports no additional musculoskeletal complaints Integumentary/Breasts: Skin/Breast: Reports system reviewed and no additional complaints, except as docu Neurologic: Reports system reviewed and no additional complaints, except as documented Psychiatric: Psychiatric: Reports no additional psychiatric complaints Endocrine: Endocrine: Reports no additional endocrine complaints Hematologic/Lymphatic: Hematologic/Lymphatic: Reports no additional hematologic/lymphatic complaints Allergic/Immunologic: Allergic/Immunologic: Reports no additional allergic/immunologic complaints PMFSH Past Medical History Medical History COVID-19 Diabetes mellitus type 2, uncontrolled Nutcracker esophagus Obesity (BMI 30.0-34.9) History of hypothyroidism History of hypertension Surgical History Surgical History Hx of LASIK History of lumbosacral spine surgery (~1992) History of lumbosacral spine surgery (~1993) History of lumbosacral spine surgery (~1995) History of colonoscopy (~10/12/16) History of appendectomy Family History Family History Mother Hypertension Social History Social History Years smoked: 30 Smoking status: Former smoker Tobacco type: cigarettes Alcohol intake: never Substance use type: does not use Gender identity (if verbalized by the patient): Male Exam Const: General: healthy appearing Nutritional Appearance: well nourished Orientation/consciousness: patient oriented x3 HENMT: Head: normal to inspection Ears: external ears normal Face/Nose/Sinus: Normal external nose present Eyes: Conjunctivae: abnormal conjunctivae and conjunctival abnormality (Inflamed and injected right eye sclera/conjunctivitis) Pupils: Equal, round and reactive pupils present EOM: EOMs intact bilaterally Direct Ophthalmoscopy: photophobia Neck: Neck: normal visual inspection Chest: Chest palpation & inspection: normal inspection of the chest Resp: Effort & Inspection: normal respiratory effort and not labored Auscultation: clear to auscultation bilaterally and no crackles Cardio: Rate: regular rate Rhythm: regular rhythm Heart sounds: no murmurs GI: Inspection: non-distended GI Palp: Yes Soft to palpation and No Tenderness to palpation present (GI) Auscultation: normal bowel sounds : General: Yes bladder normal to palpation Back/Spine/Pelvis: Back: no CVA tenderness Skin: General skin exam: normal color Rashes: no rashes Wounds: no wounds Neuro: General: patient oriented x3, moves all extremities, no meningeal signs, no focal motor deficits and CN's II-XI intact bilaterally Extrem: General: normal to inspection, no clubbing, cyanosis or edema and no pedal edema Psych: Mental Status: mental status grossly normal Affect: normal affect Attitude: cooperative Course Vital Signs Vital signs: Vital Signs Temperature 36.3 C L 07/10/25 23:16 Pulse Rate 87 07/10/25 23:16 Respiratory Rate 16 07/10/25 23:16 Blood Pressure 176/104 H 07/10/25 23:16 Pulse Oximetry 96 07/10/25 23:16 Oxygen Delivery Room Air 07/10/25 23:16 Temperature 36.3 C L 07/10/25 23:16 Pulse Rate 87 07/10/25 23:16 Respiratory Rate 16 07/10/25 23:16 Blood Pressure 176/104 H 07/10/25 23:16 Pulse Oximetry 96 07/10/25 23:16 Oxygen Delivery Room Air 07/10/25 23:16 Procedures Other Procedure Procedure 1: Other Procedure: Right eye irritation and inflammation examination: Direct viewing of the right eye with magnification was negative for acute findings, fluorescein stain/black light used and 8 o'clock position has a small scratch to the cornea, tetracaine placed for comfort, no contacts for a week, [place] 5 and ibuprofen and Tylenol as needed at home, ophthalmology as needed MDM - Eye Problem MDM Narrative Medical decision making narrative: Patient is a 60-year-old male with right eye irritation pain for the past day. He has removed his right eye contact at this point and told to leave out for the remainder of the 7 day antibiotic drops. Tetracaine. Fluorescein stain. Cortisporin ophthalmic. Discharge Plan Discharge Clinical Impression: Corneal abrasion Qualifiers: Encounter type: initial encounter Laterality: right Qualified Code(s): S05.01XA - Injury of conjunctiva and corneal abrasion without foreign body, right eye, initial encounter Patient Disposition: Home Condition: Stable Instructions: Antibiotic Form, Corneal Abrasion (ED) Patient Language: Kinyarwanda Prescriptions: New neomycin-polymyxin B-dexameth [Maxitrol] 3.5mg/mL-10,000 unit/mL-0.1 % drops,suspension 2 drp RIGHT EYE TID 7 Days Qty: 5 0RF No Action (DME) AdelaStlulu Francisca 14 Day Mcewen Misc See Rx Instructions .ROUTE .MEDSUPPLY Qty: 1 0RF Rx Instructions: As directed lisinopril 20 mg tablet 20 mg PO DAILY Qty: 90 3RF nebivolol 10 mg tablet 10 mg PO DAILY Qty: 90 3RF albuterol-budesonide 90-80 mcg/actuation HFA aerosol inhaler 2 inh inhalation QID PRN (Reason: shortness of breath) Qty: 10.7 2RF Rx Instructions: as a single dose; may repeat up to 6 doses per day (12 inhalations) nicotine 14 mg/24 hr patch 24 hour 1 patch transdermal DAILY Qty: 28 0RF Synjardy XR 10-1,000 mg tablet, IR - ER, biphasic 24hr 1 tablet PO DAILY Qty: 90 1RF (DME) [employer] 14 Day Sensor Kit See Rx Instructions .ROUTE .COMPLEX Qty: 6 1RF Dose Instruction: USE DIRECTED Rx Instructions: USE DIRECTED clonazepam 1 mg tablet 1 mg PO BID Qty: 180 1RF Follow-up/Referrals: Shaheen Diallo MD [Primary Care Provider, [facility]] Time of Disposition: 23:46
[2025-07-10] MEDS: TETRACAINE HCL 0.5% OPHTH SOLN 4 ML BTL 1 DROP RIGHT EYE (23:37)
[2025-07-10] MEDS: FLUORESCEIN SOD 1 MG/STRIP RIGHT EYE (23:37)
[2025-07-10] MEDS: NEOMYCIN/POLYMYXIN/HYDROCORT 7.5 ML EYE DROPS (*BKC) 1 DROP RIGHT EYE (23:40)
[2025-07-10] MEDS: HYDROcodone/acetaminophen (*CRX) 5-325 MG TABLET 1 TAB PO (23:46)
[2025-07-11 00:01] VITALS: BP 159/84; PULSE 70; RESP 18; O2SAT 99
== END 2025-07-11 00:01 | disposition home or self-care (01) ==
LOC: CHSED 23:53
PROVIDERS: Emergency Provider Emergency Medicine; PCP Family Medicine
DX: S05.01XA Injury of conjunctiva and corneal abrasion without foreign body, right eye, initial encounter (principal); E11.9 Type 2 diabetes mellitus without complications; E03.9 Hypothyroidism, unspecified; I10 Essential (primary) hypertension; Z87.891 Personal history of nicotine dependence; X58.XXXA Exposure to other specified factors, initial encounter
CPT/HCPCS: 99283; A9270